=== PATIENT | male | born 1960 | race Caucasian/White ===

== ENCOUNTER → 2021-02-15 12:00 | Outpatient (CLI) | payer OTHER, SELFPAY ==
[2021-02-15] MEDS: COVID-19 VACC #1, MRNA(MOD) 100 MCG/0.5 ML VIAL IM (12:11)
== END ==
PROVIDERS: Visit Provider Internal Medicine
DX: Z23 Encounter for immunization (principal)
CPT/HCPCS: 0011A; 91301

== ENCOUNTER → 2021-03-15 12:09 | Outpatient (CLI) | payer OTHER, SELFPAY ==
[2021-03-15] MEDS: COVID-19 VACC #2, MRNA(MOD) 100 MCG/0.5 ML VIAL IM (12:19)
== END ==
PROVIDERS: Visit Provider Internal Medicine
DX: Z23 Encounter for immunization (principal)
CPT/HCPCS: 0012A; 91301

== ENCOUNTER → 2021-07-27 10:44 | Outpatient (CLI) | payer OTHER, SELFPAY ==
--- NOTE | 2021-07-27 10:51 | DI.RAD.S_ITS ---
PROCEDURE: XR CHEST 2V INDICATIONS: R shoulder/ lower rib pain TECHNIQUE: 2 views of the chest were acquired. COMPARISON: None. FINDINGS: Surgical changes and devices: None. Lungs and pleura: Lungs are clear. No pleural effusions or pneumothorax. Mediastinum: Mediastinal contours are normal. Heart size is normal. Bones and chest wall: No suspicious bony abnormalities. Soft tissues appear unremarkable. IMPRESSION: No acute disease. Dictated by: Tino Hutchinson M.D. on 07/27/2021 at 11:50 Approved by: Tino Hutchinson M.D. on 07/27/2021 at 11:51
[2021-07-27 11:26] LABS: Add Manual Diff / Slide Review NO; Basophils Absolute Auto 100 /uL (0-100); Basophils Percent Auto 1.3 % (0-2); Eosinophils Absolute Auto 200 /uL (0-450); Eosinophils Percent Auto 2.4 % (2-4); Hematocrit 51.8 % (41-53); Hemoglobin 17.4 g/dL (13.5-17.5); Lymphocytes Absolute Auto 1800 /uL (1100-4500); Lymphocytes Percent Auto 25.4 % (25-40); Mean Corpuscular HGB Conc 33.5 % (30-36); Mean Corpuscular Hemoglobin 31.3 PG (26-34); Mean Corpuscular Volume 93.4 fL (80-100); Monocytes Absolute Auto 500 /uL (0-900); Monocytes Percent Auto 7.3 % (3-14); Neutrophils Absolute Auto 4500 /uL (1500-7000); Neutrophils Percent Auto 63.6 % (50-75); Platelet Count 214 X10^3/uL (150-400); Red Blood Cell Count 5.55 X10^6/uL (4.5-5.9); Red Cell Distribution Width 13.6 % (11.6-14.8); White Blood Cell Count 7.1 X10^3/uL (4.5-11.0)
[2021-07-27 12:03] LABS: Alanine Aminotransferase 35 IU/L (<50); Albumin 4.9 g/dL (3.5-5.0); Albumin Globulin Ratio 1.7 (1.0-2.8); Alkaline Phosphatase 81 U/L (38-126); Aspartate Aminotransferase 34 IU/L (17-59); BUN Creatinine Ratio 18.6 (6-22); Bilirubin Total 0.5 mg/dL (0.2-1.3); Blood Urea Nitrogen 13 mg/dL (9-20); Calcium 9.7 mg/dL (8.4-10.2); Carbon Dioxide 24 mmol/L (22-32); Chloride 104 mmol/L (98-107); Estimated Glomerular Filt Rate > 60.0 mL/min (>60); Globulin 2.9 g/dL (1.7-4.1); Glucose 111 mg/dL (70-100); HEMOLYSIS < 15 (0-50); Lipase 110 U/L (23-300); Potassium 4.6 mmol/L (3.4-5.1); Sodium 137 mmol/L (137-145); Total Protein 7.8 g/dL (6.3-8.2)
[2021-07-27 12:13] LABS: Troponin I < 0.012 ng/mL (0.01-0.034)
== END ==
PROVIDERS: Referring Provider Nurse Practitioner; Visit Provider Nurse Practitioner
DX: M25.511 Pain in right shoulder (principal)
CPT/HCPCS: 36415; 71046; 80053; 83690; 84484; 85025

== ENCOUNTER → 2021-09-04 15:36 | Outpatient (CLI) | payer OTHER, SELFPAY ==
[2021-09-04 16:18] LABS: Cholesterol 249 mg/dL (140-199); HDL Cholesterol 40 mg/dL (40-60); LDL Cholesterol Calculated 189 mg/dL (<100); Triglycerides 100 mg/dL (35-150)
[2021-09-04 16:48] LABS: Prostate Specific Antigen Scrn 0.563 ng/mL (0.1-4.0)
[2021-09-04 16:52] LABS: Creatinine Urine Random 161.5 mg/dL
[2021-09-04 16:53] LABS: Microalbumi Creatinin Ratio Ur 6.1 ug/mg CR (<30)
[2021-09-04 17:06] LABS: Vitamin D 25 Hydroxy (D3) 18.6 ng/mL (30.0-100.0)
[2021-09-04 17:15] LABS: TSH w/ Reflex to FT4 1.49 uIU/mL (0.47-4.68)
== END ==
PROVIDERS: PCP Student in an Organized Health Care Education/Training Program; Referring Provider Student in an Organized Health Care Education/Training Program; Visit Provider Student in an Organized Health Care Education/Training Program
DX: E55.9 Vitamin D deficiency, unspecified (principal); I10 Essential (primary) hypertension; Z12.5 Encounter for screening for malignant neoplasm of prostate; Z13.220 Encounter for screening for lipoid disorders
CPT/HCPCS: 36415; 80061; 82043; 82306; 82570; 84443; G0103

== ENCOUNTER 2023-04-28 22:40 | Emergency (ER) | payer OTHER, SELFPAY ==
[2023-04-28 22:46] VITALS: BP 115/65; PULSE 100; RESP 18; TEMP 36.1; O2SAT 96; BMI 27.3
[2023-04-28 22:56] VITALS: O2SAT 99
[2023-04-28 22:57] VITALS: BP 120/68; PULSE 98; O2SAT 95
[2023-04-28 23:00] VITALS: PULSE 103; O2SAT 93
--- NOTE | 2023-04-28 23:12 | ED.WOUNDLAC ---
HPI - Wound/Laceration General Chief Complaint: Wound/Laceration Stated Complaint: Left hand lac, sliced on metal bar Time Seen by Provider: 04/28/23 23:02 Source: patient Mode of arrival: Ambulatory History of Present Illness HPI narrative: 62-year-old male here for evaluation of a cut to his left hand. It occurred just prior to arrival when he cut it on a towel rack in the bathroom. No other injuries from the event. Covered with a bandage and came to the emergency department. Last tetanus shot approximately 5 years ago. Related Data Home Medications Medication Instructions Recorded Confirmed amlodipine 5 mg tablet 5 mg PO DAILY 09/04/21 09/04/21 telmisartan 80 1 tab PO DAILY 09/04/21 09/04/21 mg-hydrochlorothiazide 25 mg tablet (Micardis HCT) aspirin 81 mg tablet,delayed 81 mg PO DAILY 09/05/21 09/05/21 release (Adult Low Dose Aspirin) cholecalciferol (vitamin D3) 50 50 mcg PO DAILY 09/05/21 09/05/21 mcg (2,000 unit) capsule Previous Rx's Medication Instructions Recorded pravastatin 20 mg tablet 20 mg PO BEDTIME #90 tabs 09/05/21 Allergies Allergy/AdvReac Type Severity Reaction Status Date / Time No Known Drug Allergies Allergy Unverified 09/10/21 09:01 Review of Systems Musculoskeletal Musculoskeletal: Reports system reviewed and no additional complaints, except as documented Integumentary/Breasts Skin/Breast: Reports system reviewed and no additional complaints, except as documented Neurologic Neurologic: Reports system reviewed and no additional complaints, except as documented Hematologic/Lymphatic On Anticoagulants: No Patient History Medical History Essential hypertension Pure hypercholesterolemia Repetitive strain injury of right shoulder Vitamin D deficiency Surgical History (Updated 09/16/21 @ 22:17 by Shikha Azul) Anesthesia History of knee surgery (~1999) History of oral surgery Family History Grandfather History of heart disease Grandmother Stroke Grandfather Stroke Son No problems noted. Daughter No problems noted. Social History Smoking Status: Former smoker Smoking Status: Former smoker alcohol intake frequency: a few times a week Substance Use Type: marijuana Exam Initial Vital Signs Initial Vital Signs: Vital Signs Temperature 97 F L 04/28/23 22:46 Pulse Rate 100 H 04/28/23 22:46 Respiratory Rate 18 04/28/23 22:46 Blood Pressure 115/65 04/28/23 22:46 Pulse Oximetry 96 04/28/23 22:46 Oxygen Delivery Method Room Air 04/28/23 22:46 Cardio Pulses: radial pulses present on the left Skin Other: Patient has an irregular laceration on the volar/ulnar aspect of the left hand. No active bleeding. Neuro Sensory Exam: no sensory deficits noted Extrem Other: Patient is able to flex and extend both active and passive of the MCP D IP and PIP joints of the left little and ring finger without difficulty. Procedures Laceration Repair Laceration 1: Site: hand Side (If applicable): left Size (cm): 4 Description: irregular Depth: simple, single layer Local Anesthetic: lidocaine 1% Amount of anesthesia used (mL): 5 Pre-repair: wound explored and deep structures intact Skin layer closed with: nylon Skin layer suture size: 5-0 Number of sutures: 14 Technique: simple, interrupted Course Orders Ordered: Discontinued Medications Bacitracin (Bacitracin Oint 0.9 Gm Pckt) 1 applic TOP NOW ONE Stop: 04/28/23 23:44 Last Admin: 04/28/23 23:58 Dose: 1 applic Documented By: EUGENE Lidocaine HCl (Lidocaine 1% 20 Ml) 20 ml INJ INTRA-OP ONE Stop: 04/28/23 23:16 Last Admin: 04/28/23 23:22 Dose: 5 ml Documented By: EUGENE Vital Signs Vital signs: Vital Signs - 8 hr 04/28/23 22:46 04/28/23 22:56 04/28/23 22:57 Temperature 97 F L Pulse Rate 100 H 98 H Respiratory Rate 18 Blood Pressure 115/65 Pulse Oximetry 96 99 95 Oxygen Delivery Method Room Air 04/28/23 22:57 04/28/23 23:00 Temperature Pulse Rate 103 H Respiratory Rate Blood Pressure 120/68 Pulse Oximetry 93 Oxygen Delivery Method Room Air MDM - Wound/Laceration MDM Narrative Medical decision making narrative: Patient was neurovascularly intact. There was no indication of any tendon injury given the physical exam. The wound was closed as described above. There was no indication for radiologic studies. Patient was given care instructions and return precautions. He expressed understanding and agreement with plan. Discharge Plan Departure Patient Disposition: Home Clinical Impression: Laceration Instructions: DI for Laceration Repair Activity Restrictions/Additional Instructions: The stitches do need to be removed in approximately 7 days. Until then you can wash your hands like normal. Do not soak your hand in anything until the wound is healed. You can put topical antibiotic ointment over the area. You can take Tylenol/ibuprofen for discomfort. Return to the emergency department for new or worsening symptoms. Prescriptions: No Action telmisartan-hydrochlorothiazid [Micardis HCT] 80-25 mg tablet 1 tab PO DAILY amlodipine 5 mg tablet 5 mg PO DAILY pravastatin 20 mg tablet 20 mg PO BEDTIME Qty: 90 1RF Hold Instructions: needs labs aspirin [Adult Low Dose Aspirin] 81 mg tablet,delayed release (DR/EC) 81 mg PO DAILY cholecalciferol (vitamin D3) 50 mcg (2,000 unit) capsule 50 mcg PO DAILY Referrals: Miscellaneous,Doctor, MD [Primary Care Provider] - Stand Alone Forms: Patient Portal/API
[2023-04-28] MEDS: LIDOCAINE 1% 20 ML INJ (23:22)
[2023-04-28 23:54] VITALS: BP 104/55; PULSE 90; O2SAT 95
[2023-04-28] MEDS: BACITRACIN OINT 0.9 GM PCKT 1 APPLIC TOP (23:58)
[2023-04-28 23:59] VITALS: BP 109/58
[2023-04-29 00:13] VITALS: BP 109/58; PULSE 91; RESP 18; O2SAT 94
== END 2023-04-29 00:15 | disposition home or self-care (01) ==
PROVIDERS: Emergency Provider Emergency Medicine
DX: S61.412A Laceration without foreign body of left hand, initial encounter (principal); W45.8XXA Other foreign body or object entering through skin, initial encounter
CPT/HCPCS: 12002; 99283

== ENCOUNTER → 2025-10-26 15:07 | Outpatient (CLI) | payer OTHER, SELFPAY ==
--- NOTE | 2025-10-26 15:11 | DI.RAD.S_ITS ---
PROCEDURE: ORTHO-XR FOOT 3V WB RIGHT INDICATIONS: Right foot pain TECHNIQUE: 3 weight-bearing views acquired of the foot. COMPARISON: None. FINDINGS: Bones: There is normal bony alignment with weight bearing. No fractures or dislocations. Prominent, osseous protrusion off the lateral base of the 5th metatarsal. Mild joint space loss and trace spurring at the 1st MTP joint. Mild enthesopathy at the Achilles tendon insertion on the calcaneus. No suspicious bony lesions. Soft tissues: No tibiotalar joint effusion. No suspicious soft tissue calcifications. IMPRESSION: No acute bony abnormality. Dictated by: Damaris Worley M.D. on 10/27/2025 at 13:49 Approved by: Damaris Worley M.D. on 10/27/2025 at 13:51
--- NOTE | 2025-10-26 15:11 | DI.RAD.S_ITS ---
PROCEDURE: ORTHO-XR FOOT 3V WB LEFT COMPARISON: None. INDICATIONS: Left foot pain FINDINGS: Three views of the left foot during weight-bearing or acquired. There is a partially corticated, minimally distracted osseous fragment at the base of the 5th metatarsal. Moderate 1st MTP joint space loss, mild sclerosis and marginal spur formation. Small to moderate size plantar calcaneal spur. Soft tissues appear normal. Achilles tendon appears normal. 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 Accessory ossicle is favored due to prominent, and nearly symmetric 5th metatarsal protrusion on the contralateral side. There may have been an ossicle fracture. Mild to moderate 1st MTP degeneration. Dictated by: Damaris Worley M.D. on 10/27/2025 at 13:46 Approved by: Damaris Worley M.D. on 10/27/2025 at 13:49
== END ==
LOC: RAD 15:09
PROVIDERS: Referring Provider Podiatrist Foot & Ankle Surgery; Visit Provider Podiatrist Foot & Ankle Surgery
DX: M19.072 Primary osteoarthritis, left ankle and foot (principal); M79.671 Pain in right foot; M79.672 Pain in left foot
CPT/HCPCS: 73630